=== PATIENT | female | born 1965 | race American Indian/Alaskan Native ===

== ENCOUNTER 2016-03-31 13:19 | Emergency (ER) | payer MEDICAID, MEDICARE ==
--- NOTE | 2016-03-31 14:16 | XRay Report ---
ROUTINE CHEST, TWO VIEWS: HISTORY: chest pain. The trachea, heart, mediastinal contour, lung carlton and bony thorax are unremarkable. Previous CABG changes are suspected. No significant change since 02/21/13. IMPRESSION: Unremarkable chest x-ray.
[2016-03-31 14:45] LABS: Hematocrit 34.6 % (30.3-42.9); Hemoglobin 11.8 gm/dl (10.1-14.3); Mean Corpuscular HGB Conc 34 % (30-34); Mean Corpuscular Hemoglobin 28 pg (28-32); Mean Corpuscular Volume 82 fl (79-97); Platelet Count 187 K/mm3 (140-440); Red Blood Count 4.21 M/mm3 (3.65-5.03); Red Cell Distribution Width 14.9 % (13.2-15.2); White Blood Count 6.3 K/mm3 (4.5-11.0)
[2016-03-31 14:46] LABS: INR 1.03 (0.87-1.13)
[2016-03-31 14:47] LABS: Partial Thromboplastin Time 29.2 Sec. (24.2-36.6)
[2016-03-31 14:52] LABS: Anion Gap 22 mmol/L; Blood Urea Nitrogen 11 mg/dL (7-17); Calcium 8.6 mg/dL (8.4-10.2); Carbon Dioxide 19 mmol/L (22-30); Chloride 94.7 mmol/L (98-107); Glucose 300 mg/dL (65-100); Sodium 132 mmol/L (137-145)
[2016-03-31 15:13] LABS: Basophils % (Manual) 0 % (0.0-1.8); Blastocytes % (Manual) 0 %
[2016-03-31 15:14] LABS: Diff Status Complete; Platelet Estimate Appears Decreased; Polychromasia Few
[2016-03-31] MEDS ORDERED: MUCINEX ER PO ONE (17:15)
[2016-03-31] MEDS ORDERED: DUONEB 0.5 MG-3 MG/3 ML SOLN IH ONE (17:15)
[2016-03-31] MEDS ORDERED: TESSALON PERLES PO ONE (17:15)
[2016-03-31] MEDS ORDERED: MORPHINE IV ONE (17:16)
[2016-03-31] MEDS ORDERED: ZOFRAN IV ONE (17:16)
--- NOTE | 2016-03-31 17:33 | Emergency Department Report ---
HPI - General Chief Complaint: Dyspnea/Respdistress Time Seen by Provider: 03/31/16 16:42 - HPI HPI: The patient is a 50-year-old female who presents for evaluation of cough and chest pain. The patient reports a dry cough for the past 3 days, associated with aching constant right-sided chest pain, moderate to severe, exacerbated with coughing and moving of the upper body. She has also experienced some mild transient shortness of breath with physical activity. The patient denies fever, trauma to the chest wall, back or neck pain, parasthesias, syncope, hemoptysis, palpitations, dizziness, unilateral leg swelling, calf muscle pain, cocaine or other stimulant use, history of DVT or PE, recent immobilization. ED Past Medical Hx - Past Medical History Previous Medical History?: Yes Hx Hypertension: Yes Hx Congestive Heart Failure: Yes Hx Diabetes: Yes Hx Deep Vein Thrombosis: No Hx Pulmonary Embolism: Yes Hx GERD: Yes Hx Asthma: No Hx COPD: No Additional medical history: CAD - Surgical History Hx Open Heart Surgery: Yes (double bypass 2006) Hx Pacemaker: No Hx Internal Defibrillator: No Hx Cholecystectomy: Yes Additional Surgical History: right ankle surgery 2007, hysterectomy - Social History Smoking Status: Never Smoker Substance Use Type: None - Medications Home Medications: Home Medications Medication Instructions Recorded Confirmed Last Taken Type Aspirin [Aspirin EC] 81 mg PO QDAY 11/22/12 02/24/13 11/22/12 08:00 History Furosemide 20 mg PO BID 11/22/12 02/24/13 11/21/12 19:00 History Hydrocodone Bit/Acetaminophen 1 tab PO Q8H PRN 11/22/12 02/24/13 11/21/12 20:00 History [Hydrocodon-Acetaminoph 7.5-500] Insulin Aspart [NovoLOG 100 40 units SUB-Q BID 11/22/12 02/24/13 11/22/12 08:00 History UNITS/ML VIAL] Insulin Glargine,Hum.rec.anlog 80 units SUB-Q QPM 11/22/12 02/24/13 11/21/12 20: 00 History [Lantus] Metoprolol Tartrate 50 mg PO QAM 11/22/12 02/24/13 11/22/12 08:00 History Potassium Chloride [K-Dur] 1 tab PO QAM 11/22/12 02/24/1311/22/13 08:00 History Warfarin Sodium 15 mg PO QDAY 11/22/12 02/24/13 11/21/12 19:00 History Antipyrine/Benzocaine/Glycerin 2 drops AD Q8HR PRN #1 bottle 11/23/12 02/24/13 Unknown Rx [Auralgan] Diphenoxylate/Atropine [Lomotil] 1 tab PO QID PRN #20 tablet 11/23/12 02/24/13 Unknown Rx Hydrocodone Bit/Acetaminophen 1 - 2 each PO Q4-6H PRN #12 tablet 11/23/12 Unknown Rx [Lortab 5-500 Tablet] Promethazine [Phenergan TAB] 25 mg PO Q6H PRN #20 tablet 11/23/12 02/24/13 Unknown Rx metroNIDAZOLE [Flagyl] 500 mg PO Q6H #28 tablet 11/23/12 02/24/13 Unknown Rx ALBUTEROL Inhaler [ProAir HFA 2 puff IH QID PRN #1 inhalation 03/31/16 Unknown Rx Inhaler] Benzonatate [Tessalon Perles] 100 mg PO Q8HR #20 capsule 03/31/16 Unknown Rx HYDROcodone/APAP 7.5-325 [[place] 1 each PO Q8HR PRN #12 tablet 03/31/16 Unknown Rx 7.5-325 mg TAB] guaiFENesin [Mucinex] 600 mg PO Q6HR #20 tab.er.12h 03/31/16 Unknown Rx ED Review of Systems ROS: Stated complaint: CHEST PAIN/COUGH/ BACK PAIN Other details as noted in HPI Constitutional: denies: fever ENT: denies: throat or neck pain Respiratory: reports cough, shortness of breath Cardiovascular: denies: chest pain Endocrine: denies unexplained weight loss or gain Gastrointestinal: denies: abdominal pain, nausea Genitourinary: denies: dysuria Musculoskeletal: denies: leg swelling Skin: denies: rash Neurological: denies: headache Hematological/Lymphatic: denies: easy bleeding or easy bruising Psych: denies sadness or hopelessness Physical Exam - Physical Exam Vital Signs: Vital Signs 03/31/16 03/31/16 03/31/16 13:37 16:35 16:36 Temperature 98.1 F Pulse Rate 81 82 83 Respiratory 22 15 13 Rate Blood Pressure 180/85 O2 Sat by Pulse 98 99 Oximetry 03/31/16 03/31/16 16:37 16:48 Temperature Pulse Rate 77 Respiratory 21 21 Rate Blood Pressure 170/68 O2 Sat by Pulse 99 99 Oximetry Physical Exam: General: well-nourished, well-developed, no acute distress Head: Normocephalic, atraumatic Eyes: normal sclera ENT: Mucous membranes are pink and moist, bilateral nasal congestion present Neck: trachea midline, neck supple, No neck stiffness, no cervical adenopathy Respiratory: Breath sounds equal bilaterally, no wheezing, rales, or rhonchi Cardio: S1 and S2 present, no murmurs, rubs, gallops, capillary refill is brisk Abdomen: Normoactive bowel sounds, soft abdomen, no rigidity, no guarding or rebound tenderness Chest WALL/Back: tenderness to palpation of the right lower chest wall is present, chest pain elicited with adduction and internal rotation of the right arm, no CVA tenderness with percussion Musc: No pitting edema Skin: No rash Neuro: no facial drooping, normal speech Psych: Normal affect ED Course Vital Signs 03/31/16 03/31/16 03/31/16 13:37 16:35 16:36 Temperature 98.1 F Pulse Rate 81 82 83 Respiratory 22 15 13 Rate Blood Pressure 180/85 O2 Sat by Pulse 98 99 Oximetry 03/31/16 03/31/16 16:37 16:48 Temperature Pulse Rate 77 Respiratory 21 21 Rate Blood Pressure 170/68 O2 Sat by Pulse 99 99 Oximetry ED Medical Decision Making - Lab Data Result diagrams: 03/31/16 14:18 03/31/16 14:02 - Medical Decision Making The patient was seen and examined by myself. The patient is placed on a in classroom tutor and continuous pulse ox. On initial evaluation, the patient was found to be in no distress. Evaluation orders were placed. EKG was negative for findings suggestive of acute cardiac infarct. The patient is given a DuoNeb breathing treatment, Tessalon Perles for their cough, and Mucinex for nasal congestion. The patient is given IV morphine for pain. Lab results revealed elevated glucose of 300, and otherwise labs were not concerning. The patient is given IV insulin for treatment of hyperglycemia. Chest x-ray is negative for pulmonary vessel congestion, pleural effusion, focal consolidation , or other acute cardio pulmonary disease process. The patient was reevaluated and reported that their symptoms were markedly improved. On reexamination the patient is found to have normal respiratory rate and O2 sat on pulse oximetry, with no costal retractions or diminishment of breath sounds on auscultation. The patient is stable for discharge with outpatient follow-up. The patient is given follow-up and return instructions. The patient expressed understanding and agreed with the plan. The patient is discharged in stable condition. Critical care attestation.: If time is entered above; I have spent that time in minutes in the direct care of this critically ill patient, excluding procedure time. ED Disposition Clinical Impression: Acute hyperglycemia, Acute chest wall pain, Upper respiratory infection, acute Disposition: DISCHARGED TO HOME OR SELFCARE Is pt being admited?: No Does the pt Need Aspirin: No Condition: Stable Instructions: Chest Pain (ED), Costochondritis (ED), Upper Respiratory Infection (ED), Viral Syndrome (ED) Prescriptions: ALBUTEROL Inhaler [ProAir HFA Inhaler] 2 puff IH QID PRN #1 inhalation PRN Reason: Shortness Of Breath Benzonatate [Tessalon Perles] 100 mg PO Q8HR #20 capsule guaiFENesin [Mucinex] 600 mg PO Q6HR #20 tab.er.12h HYDROcodone/APAP 7.5-325 [[place] 7.5-325 mg TAB] 1 each PO Q8HR PRN #12 tablet PRN Reason: Pain Referrals: ASLMA CRUZ MD [Primary Care Provider] - 3-5 Days Time of Disposition: 17:18
[2016-03-31 17:36] VITALS: BP 168/81
== END 2016-03-31 18:40 | disposition home or self-care (01) ==
LOC: ED 13:19
DX: E11.65 Type 2 diabetes mellitus with hyperglycemia (principal); R07.89 Other chest pain; J06.9 Acute upper respiratory infection, unspecified; I50.9 Heart failure, unspecified; K21.9 Gastro-esophageal reflux disease without esophagitis; I26.99 Other pulmonary embolism without acute cor pulmonale; I10 Essential (primary) hypertension; Z90.710 Acquired absence of both cervix and uterus; Z90.49 Acquired absence of other specified parts of digestive tract; Z79.82 Long term (current) use of aspirin; Z76.4 Other boarder to healthcare facility; Z86.73 Personal history of transient ischemic attack (TIA), and cerebral infarction without residual deficits
CPT/HCPCS: 36415; 71020; 80048; 83880; 84484; 85007; 85025; 85610; 85730; 93005; 93010; 94640; 96374; 96375; 99284; J2270; J2405; J1815

== ENCOUNTER 2016-06-15 12:04 | Emergency (ER) | payer MEDICAID ==
[2016-06-15 12:25] VITALS: BP 142/86
--- NOTE | 2016-06-15 12:44 | Emergency Department Report ---
Entered by JENNY DUMONT, acting as scribe for JAMIE ROSALES NP. Chief Complaint: Pain General Stated Complaint: HANDS SWOLLEN Time Seen by Provider: 06/15/16 12:27 - HPI History of Present Illness: 50 y/o non-toxic, non ill-appearing female in no acute distress presents to ED c /o bilateral hand pain and swelling this morning with associated muscle spasms in her legs, denies numbness, tingling. Reports compliance with her Lasix. Denies chest pain, SOB. Hx double bypass in 2006. - ROS Review of Systems: + pain, swelling hands bilaterally - numbness, tingling, chest pain, SOB, nausea, vomiting, abdominal pain - Exam Vital Signs: Vital Signs 06/15/16 12:20 Temperature 98.2 F Pulse Rate 87 Respiratory 18 Rate Blood Pressure 142/86 O2 Sat by Pulse 97 Oximetry Physical Exam: Lower extremities appear normal, mild swelling appreciated to hands, non-tender MSE screening note: Focused history and physical exam performed. Due to findings the following was ordered: CBC, EKG, CMP, CK ED Disposition for MSE Condition: Stable This documentation as recorded by the scribe,JENNY DUMONT,accurately reflects the service I personally performed and the decisions made by BOBBY youssef MARTIN, RAKESH.
[2016-06-15 13:07] LABS: Basophils % (Auto) 1.4 % (0.0-1.8); Eosinophils % (Auto) 1.8 % (0.0-4.3); Hematocrit 35.3 % (30.3-42.9); Hemoglobin 11.9 gm/dl (10.1-14.3); Mean Corpuscular HGB Conc 34 % (30-34); Mean Corpuscular Hemoglobin 28 pg (28-32); Mean Corpuscular Volume 84 fl (79-97); Platelet Count 195 K/mm3 (140-440); Red Blood Count 4.23 M/mm3 (3.65-5.03); Red Cell Distribution Width 15.3 % (13.2-15.2); White Blood Count 8.2 K/mm3 (4.5-11.0)
[2016-06-15 13:28] LABS: Alanine Aminotransferase 25 units/L (7-56); Albumin 3.7 g/dL (3.9-5); Albumin/Globulin Ratio 1.4 %; Alkaline Phosphatase 69 units/L (35-129); Anion Gap 20 mmol/L; BUN/Creatinine Ratio 15.55; Blood Urea Nitrogen 14 mg/dL (7-17); Calcium 8.8 mg/dL (8.4-10.2); Carbon Dioxide 22 mmol/L (22-30); Chloride 97.7 mmol/L (98-107); Glucose 266 mg/dL (65-100); Potassium 4.3 mmol/L (3.6-5.0); Sodium 135 mmol/L (137-145); Total Protein 6.4 g/dL (6.3-8.2)
--- NOTE | 2016-06-18 11:15 | ED Elopement Review ---
ED Pt Elopement review - Results review Lab results: Laboratory Tests 06/15/16 06/15/16 06/15/16 12:51 12:51 12:51 WBC 8.2 RBC 4.23 Hgb 11.9 Hct 35.3 MCV 84 MCH 28 MCHC 34 RDW 15.3 H Plt Count 195 Lymph % (Auto) 32.7 Turner % (Auto) 7.7 H Eos % (Auto) 1.8 Baso % (Auto) 1.4 Lymph # 2.7 Turner # 0.6 Eos # 0.1 Baso # 0.1 Seg Neutrophils % 56.4 Seg Neutrophils # 4.6 Sodium 135 L Potassium 4.3 Chloride 97.7 L Carbon Dioxide 22 Anion Gap 20 BUN 14 Creatinine 0.9 Estimated GFR > 60 BUN/Creatinine Ratio 15.55 Glucose 266 H Calcium 8.8 Total Bilirubin 0.20 AST 19 ALT 25 Alkaline Phosphatase 69 Total Creatine Kinase 215 H Total Protein 6.4 Albumin 3.7 L Albumin/Globulin Ratio 1.4 - Call Back decision Pt Call Back Decision: No action required
== END 2016-06-15 20:50 | disposition left against medical advice (07) ==
LOC: ED 12:04
DX: M79.642 Pain in left hand (principal); M79.641 Pain in right hand; M79.89 Other specified soft tissue disorders; Z53.21 Procedure and treatment not carried out due to patient leaving prior to being seen by health care provider
CPT/HCPCS: 36415; 80053; 82550; 85025; 93005; 93010